=== PATIENT | male | born 1965 | race African-American/Black ===

== ENCOUNTER 2018-04-04 18:15 | Emergency (ER) | payer BC ==
[~2018-04-04] VITALS: Ht 170.2 cm; Wt 104.3 kg
[2018-04-04 19:30] VITALS: BP 155/112
[2018-04-04] MEDS ORDERED: AMOX500T PO (19:37)
[2018-04-04] MEDS ORDERED: ACET-704 PO (19:37)
--- NOTE | 2018-04-04 19:37 | PHYS DOC ---
Adult General Chief Complaint Chief Complaint: DENTAL PROBLEM HPI HPI Patient is a 52 year old male who presents with pain of his upper R gumline. He wears a denture and noticed the pain today and took the denture out and the gum was all swollen and inflamed. It hurts for him to put the denture back in at all. He has a headache and does not feel real well. He reports he is supposed to work the next couple of days and is hoping for some medicine and note so he can get better at home this weekend. Review of Systems Review of Systems Constitutional: Denies fever or chills HENT: Denies nasal congestion or sore throat. R mouth pain along upper gum. Respiratory: Denies cough or shortness of breath Cardiovascular: Denies chest pain. GI: Denies abdominal pain, nausea, vomiting, bloody stools or diarrhea Musculoskeletal: Denies back pain or joint pain Integument: Denies rash or skin lesions Neurologic: Denies weakness or sensory changes. Reports mild headache. Endocrine: Denies polyuria or polydipsia All other systems were reviewed and found to be within normal limits, except as documented in this note. Allergies Allergies Allergies Coded Allergies Type Severity Reaction Last Updated Verified No Known Drug Allergies 04/04/18 No Physical Exam Physical Exam Constitutional: Well developed, well nourished, no acute distress, non-toxic appearance. HENT: Normocephalic, atraumatic, bilateral external ears normal, oropharynx moist, nose normal. Swollen upper R gum with some induration but no fluctuance. No exudate or pointing lesion present. Tender to touch. Eyes: PERRLA, EOMI, conjunctiva normal, no discharge. Neck: Normal range of motion, no tenderness, supple, no stridor. Cardiovascular:Heart rate regular rhythm, no murmur Lungs & Thorax: Bilateral breath sounds clear to auscultation Abdomen: Bowel sounds normal, soft, no tenderness, no masses, no pulsatile masses. Skin: Warm, dry, no erythema, no rash. Back: No tenderness, no CVA tenderness. Extremities: No tenderness, no cyanosis, no clubbing, ROM intact, no edema. Neurologic: Alert and oriented X 3, normal motor function, normal sensory function, no focal deficits noted. Psychologic: Affect normal, judgement normal, mood normal. Current Patient Data Vital Signs Vital Signs Date Time Temp Pulse Resp B/P (MAP) Pulse Ox O2 Delivery O2 Flow Rate FiO2 04/04/18 19:30 98.3 91 18 155/112 (126) 98 Room Air 98.3 EKG EKG [] Radiology/Procedures Radiology/Procedures [] Course & Med Decision Making Course & Med Decision Making Pertinent Labs and Imaging studies reviewed. (See chart for details) Pt afebrile but hypertensive. Discussed this could certainly be from pain and recommend close recheck by his PCP. Pt will be started on Amoxil and Tylenol #3 and recommend mouth wash or salt water rinses after meals, to leave denture out until this has healed and close f /u with his dentist. Dragon Disclaimer Dragon Disclaimer This electronic medical record was generated, in whole or in part, using a voice recognition dictation system. Departure Departure Impression: Primary Impression: Gingiva disorder Additional Impression: Oral infection Disposition: 01 HOME, SELF-CARE Condition: STABLE Referrals: NO PCP (PCP) Patient Instructions: Gingivitis, [id number] Additional Instructions: Rinse mouth out with salt water or mouthwash after each meal. Follow up with your dentist if persists. Scripts Acetaminophen With Codeine (TYLENOL WITH CODEINE #3 TABLET) 1 Each Tablet 1 TAB PO PRN Q6HRS PRN for PAIN for 7 Days, #15 TAB Prov: AIDA COX 04/04/18 Amoxicillin (AMOXICILLIN) 500 Mg Tablet 2 TAB PO BID, #40 TAB Prov: AIAD COX 04/04/18 Problem Qualifiers AIDA COX Apr 04, 2018 19:37
== END 2018-04-04 19:53 | disposition home or self-care (01) ==
LOC: ER 18:15
DX: K06.9 Disorder of gingiva and edentulous alveolar ridge, unspecified (principal); K12.2 Cellulitis and abscess of mouth
CPT/HCPCS: 99283

== ENCOUNTER 2018-06-24 07:14 | Emergency (ER) | payer BC ==
[~2018-06-24] VITALS: Ht 170.2 cm; Wt 99.8 kg
[~2018-06-24 07:14] MED LIST: ACET-704 PO; AMOX500T PO
[2018-06-24] MEDS ORDERED: ORPHENADRINE CITRATE 60 MG/2 ML VIAL. IM ONE (08:15)
[2018-06-24] MEDS ORDERED: IBUPROFEN 600 MG TABLET. PO ONE (08:15)
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
[2018-06-24] MEDS ORDERED: IBUP200T44 PO (09:33)
[2018-06-24] MEDS ORDERED: ORPH100T PO (09:33)
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
[2018-06-24 09:37] VITALS: BP 159/99
== END 2018-06-24 09:47 | disposition home or self-care (01) ==
LOC: ER 07:14
DX: S16.1XXA Strain of muscle, fascia and tendon at neck level, initial encounter (principal); S00.83XA Contusion of other part of head, initial encounter; I10 Essential (primary) hypertension; F17.210 Nicotine dependence, cigarettes, uncomplicated; V43.52XA Car driver injured in collision with other type car in traffic accident, initial encounter; Y93.89 Activity, other specified; Y92.410 Unspecified street and highway as the place of occurrence of the external cause; Y99.8 Other external cause status
CPT/HCPCS: 70450; 72125; 96372; 99284; J2360